=== PATIENT | male | born 1990 | race Hispanic/Latino ===

== ENCOUNTER 2019-11-24 14:21 | Emergency (ER) | payer SELFPAY ==
--- NOTE | 2019-11-24 14:45 | Event Note ---
ED Screening Note ED Screening Note: laceration two days ago went to another clinic and had the laceration repaired states he has pain in the finger states he was given two medications but does not know what he is taking states one is for pain and one is an antibiotic states he was given a tetanus shot he denies any numbness or weakness he is able to move the finger
[2019-11-24 14:46] VITALS: BP 117/77
--- NOTE | 2019-11-24 14:49 | Emergency Department Report ---
Chief Complaint: Extremity Problem,Nontraumatic Stated Complaint: LFT HAND Time Seen by Provider: 11/24/19 14:37 - HPI History of Present Illness: pt is a 29 yo male who presents to the ED with c/o laceration two days ago to the left ring finger went to another clinic and had the laceration repaired with sutures states he had an XR performed which was normal states he has pain in the finger and feels like his finger was swelling states he was given two medications but does not know what he is taking states one is for pain and one is an antibiotic states he was given a tetanus shot he denies any numbness or weakness he is able to move the finger kazakh interpretation by Vince, computer security coordinator on exam: it appears that pt had a nail avulsion, sutures have been placed to place the nail back in, there are sutures intact in the distal end of left ring finger, FROM of the finger, sensation is intact, neurovascularly intact, no drainage, no erythema, no increased warmth, appears that bandage was placed slightly too tightly Area was cleaned with Betadine and normal saline, new bandage was placed loosely just to cover the area, discussed with patient to not wear too tightly anymore advised to please wash with soap and water and immediately dry. please take the antibiotics and pain medications you were already given. may also take ibuprofen. no hot tub, no pool, no soaking in water. may ice the finger for 15 minutes at a time. follow up with a primary care doctor. sutures will need to be removed in 10 days. return to the emergency room immediately for any new or worsening symptoms including but not limited to numbness, weakness, inability to move the finger, fever, chills, drainage from the finger, etc MSE screening note: Focused history and physical exam performed. ED Disposition for MSE Clinical Impression: Laceration of left ring finger Qualifiers: Encounter type: subsequent encounter Damage to nail status: with damage Foreign body presence: without foreign body Qualified Code(s): S61.315D - Laceration without foreign body of left ring finger with damage to nail, subsequent encounter Disposition: Z MED SCREENING EXAM-LEFT Is pt being admited?: No Does the pt Need Aspirin: No Condition: Stable Instructions: Suture Care (ED) Additional Instructions: please wash with soap and water and immediately dry. please take the antibiotics and pain medications you were already given. may also take ibuprofen. no hot tub, no pool, no soaking in water. may ice the finger for 15 minutes at a time. follow up with a primary care doctor. sutures will need to be removed in 10 days. return to the emergency room immediately for any new or worsening symptoms including but not limited to numbness, weakness, inability to move the finger, fever, chills, drainage from the finger, etc derrick con agua y jabn e inmediatamente secar. tome los antibiticos y medicamentos para el dolor que ya le dieron. Tambin puede aren ibuprofeno. sin baera de hidromasaje, sin piscina, sin remojo en agua. puede congelar el dedo eleazar 15 minutos a la vez. seguimiento con un mdico de atencin primaria. Las suturas debern retirarse en 10 garcia. Regrese a la paul de emergencias de inmediato por cualquier sntoma nuevo o que empeore, incluidos, entre otros, entumecimiento, debilidad, incapacidad para suture gauger el dedo, fiebre, escalofros, drenaje del dedo, etc. Referrals: HERNANDEZ CRUZ MD [Staff Physician] - 3-5 Days [facility] [Outside] - 3-5 Days [facility] [Outside] - 3-5 Days Time of Disposition: 14:46 Print Language: FRENCH
== END 2019-11-24 15:00 | disposition left against medical advice (07) ==
LOC: ED 14:21
DX: S61.215A Laceration without foreign body of left ring finger without damage to nail, initial encounter (principal); X58.XXXA Exposure to other specified factors, initial encounter; Y93.89 Activity, other specified; Y92.89 Other specified places as the place of occurrence of the external cause; Y99.8 Other external cause status
CPT/HCPCS: 99281